=== PATIENT | male | born 1995 | race African-American/Black ===

== ENCOUNTER 2019-05-19 06:52 | Emergency (ER) | payer MEDICAID, SELFPAY ==
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
[2019-05-19] MEDS ORDERED: Iopamidol-370 76% 500 ML 1 ML ONE (14:23)
== END 2019-05-19 08:32 | disposition home or self-care (01) ==
LOC: ERS 06:52
DX: S32.029A Unspecified fracture of second lumbar vertebra, initial encounter for closed fracture (principal); S32.039A Unspecified fracture of third lumbar vertebra, initial encounter for closed fracture; S32.049A Unspecified fracture of fourth lumbar vertebra, initial encounter for closed fracture; S50.11XA Contusion of right forearm, initial encounter; V89.2XXA Person injured in unspecified motor-vehicle accident, traffic, initial encounter
CPT/HCPCS: 70450; 71260; 72125; 74177; Q9967